=== PATIENT | male | born 1980 | race Caucasian/White ===

== ENCOUNTER 2016-09-20 11:49 | Emergency (ER) | payer BC ==
--- NOTE | 2016-09-20 13:39 | EDM.PDOC ---
ED HPI Behavioral Health - General Chief Complaint: Drug or Alcohol Abuse Stated Complaint: MEDICAL CLEARANCE Time Seen by Provider: 09/20/16 12:21 Source of Information: Reports: Patient Exam Limitations: Reports: No limitations - History of Present Illness INITIAL COMMENTS - FREE TEXT/NARRATIVE: Patient presents for a medical clearance to do the [facility] crisis bed. Patient reports that he has been drinking alcohol steadily since August 01. Prior to that he was sober for 2 years. He struggled with alcohol abuse off and on for several years. He reports that he detoxed twice once in 2010 and once in April 2014. These were at [facility]. He reports that he experienced auditory and visual hallucinations with his previous detox and tremors. He denies ever having seizures. He was previously on some for medication help with the withdrawal symptoms. Patient reports today that he is expressing some chest pain, anxiety, nausea and one episode of vomiting. He does report that he is depression and has anxiety but denies any suicidal ideation or plan. Additionally, he denies any abdominal pain, shortness of breath or any current tremors. Patient reports that he abuses alcohol. She is drinks about a liter of vodka a day. He does not use any street drugs or prescription narcotic medication. Reports that his last drink was about 10 minutes prior to arrival in the ER. Patiently is currently on medication for depression and anxiety. He states he is scheduled to see Dr. beasley at 1500 today. He recently relocated from [place] to the [facility] and this will be his first visit with Dr. beasley. - Related Data Allergies Allergy/AdvReac Type Severity Reaction Status Date / Time No Known Allergies Allergy Verified 09/20/16 11:59 Home Medications: Home Meds Citalopram [Celexa] 40 mg PO DAILY 09/20/16 [History] ClonazePAM [KlonoPIN] 0.5 mg PO DAILY 09/20/16 [History] ClonazePAM [KlonoPIN] 1.5 mg PO BEDTIME 09/20/16 [History] LORazepam [Ativan] 1 mg PO ASDIRECTED #10 tablet 09/20/16 [Rx] Lisinopril 20 mg PO DAILY 09/20/16 [History] Ondansetron [Zofran ODT] 4 mg PO Q6H PRN #12 tab.dis 09/20/16 [Rx] Chest Pain Score (Numeric/FACES): 4 Past Medical History Cardiovascular History: Reports: Hypertension Social & Family History - Tobacco Use Smoking Status *Q: Current Every Day Smoker Years of Tobacco use: 20 Packs/Tins Daily: 1 - Recreational Drug Use Drug Use in Last 12 Months: No ED ROS GENERAL - Review of Systems Review Of Systems: See Below Constitutional: Denies: fever, chills Respiratory: Denies: Shortness of Breath Cardiovascular: Reports: Chest pain GI/Abdominal: Reports: Nausea, Vomiting. Denies: Abdominal pain Neurological: Denies: Seizure, Tremors Psychiatric: Reports: Anxiety, Depression. Denies: Suicidal ideation ED EXAM, BEHAVIORAL HEALTH - Physical Exam Exam: See Below Exam Limited By: No limitations General Appearance: alert, WD/WN, no apparent distress Respiratory/Chest: no respiratory distress, lungs clear, normal breath sounds Cardiovascular: normal peripheral pulses, regular rate, rhythm, no murmur GI/Abdominal: normal bowel sounds, soft, non tender Neurological: alert, normal mood/affect, normal cognition. No: tremor Psychiatric: alert, normal affect, normal cognition, normal mood Skin Exam: Warm, Dry, Normal color EKG INTERPRETATION EKG Date: 09/20/16 Time: 12:30 Rhythm: NSR Rate (beats/min): 100 [place]: normal P-wave: present QRS: normal ST-T: normal QT: normal EKG Interpretation Comments: NSR at 100 bpm. Diffuse early repolarization pattern. Reviewed by myself and Dr. Nazario. COURSE, BEHAVIORAL HEALTH COMP - Course Vital Signs: Last Vital Signs Temp 37.1 C 09/20/16 12:00 Pulse 93 09/20/16 14:15 Resp 18 09/20/16 14:15 BP 131/78 09/20/16 14:15 Pulse Ox 98 09/20/16 14:15 Orders, Labs, Meds: Active Orders 24 hr Category Date Time Status EKG 12 Lead [EKG Documentation Completion] [RC] STAT Care 09/20/16 12:24 Active Chest 1V Frontal [CR] Stat Exams 09/20/16 12:24 Taken Laboratory Tests 09/20/16 09/20/16 09/20/16 Range/Units 12:41 12:41 12:41 WBC 8.63 (4.23-9.07) K/mm3 RBC 4.46 L (4.63-6.08) M/mm3 Hgb 14.2 (13.7-17.5) gm/L Hct 41.2 (40.1-51.0) % MCV 92.4 H (79.0-92.2) fl MCH 31.8 (25.7-32.2) pg MCHC 34.5 (32.2-35.5) g/dl RDW Std Deviation 44.7 H (35.1-43.9) fL Plt Count 192 (163-337) K/mm3 MPV 9.1 L (9.4-12.3) fl Neut % (Auto) 78.9 H (34.0-67.9) % Lymph % (Auto) 15.9 L (21.8-53.1) % [place] % (Auto) 4.3 L (5.3-12.2) % Eos % (Auto) 0 L (0.8-7.0) Baso % (Auto) 0.7 (0.1-1.2) % Neut # 6.81 H (1.78-5.38) K/mm3 Lymph # 1.37 (1.32-3.57) K/mm3 [place] # 0.37 (0.30-0.82) K/mm3 Eos # 0.00 L (0.04-0.54) K/mm3 Baso # 0.06 (0.01-0.08) K/mm3 PT 10.3 (8.0-13.0) SECONDS INR 0.95 APTT 24 (22-36) SECONDS Sodium 143 (136-145) mEq/L Potassium 3.7 (3.5-5.1) mEq/L Chloride 105 (98-107) mEq/L Carbon Dioxide 26 (21-32) mEq/L Anion Gap 15.7 H (5-15) BUN 8 (7-18) mg/dL Creatinine 0.6 L (0.7-1.3) mg/dL Est Cr Clr Drug Dosing 166.93 mL/min Estimated GFR (MDRD) > 60 (>60) mL/min BUN/Creatinine Ratio 13.3 L (14-18) Glucose 102 (74-106) mg/dL Calcium 8.9 (8.5-10.1) mg/dL Total Bilirubin 0.4 (0.2-1.0) mg/dL AST 16 (15-37) U/L ALT 23 (16-63) U/L Alkaline Phosphatase 50 (46-116) U/L Troponin I < 0.017 (0.00-0.056) ng/mL Total Protein 7.2 (6.4-8.2) g/dl Albumin 4.5 (3.4-5.0) g/dl Globulin 2.7 gm/dL Albumin/Globulin Ratio 1.7 (1-2) Urine Color (Yellow) Urine Appearance (Clear) Urine pH (5.0-8.0) Ur Specific [place] (1.005-1.030) Urine Protein (Negative) Urine Glucose (UA) (Negative) Urine Ketones (Negative) Urine Occult Blood (Negative) Urine Nitrite (Negative) Urine Bilirubin (Negative) Urine Urobilinogen (0.2-1.0) Ur Leukocyte Esterase (Negative) Urine RBC (0-5) /hpf Urine WBC (0-5) /hpf Ur Epithelial Cells (0-5) /hpf Urine Bacteria (FEW) /hpf Urine Mucus (FEW) /hpf Urine Opiates Screen (NEGATIVE) Ur Buprenorphine Scrn (NEGATIVE) Ur Oxycodone Screen (NEGATIVE) Urine Methadone Screen (NEGATIVE) Ur Propoxyphene Screen (NEGATIVE) Ur Barbiturates Screen (NEGATIVE) Ur Tricyclics Screen (NEGATIVE) Ur Phencyclidine Scrn (NEGATIVE) Ur Amphetamine Screen (NEGATIVE) U Methamphetamines Scrn (NEGATIVE) U Benzodiazepines Scrn (NEGATIVE) U Cocaine Metab Screen (NEGATIVE) U Marijuana (THC) Screen (NEGATIVE) Ethyl Alcohol 0.23 (0.00) gm% 09/20/16 09/20/16 Range/Units 12:55 12:55 WBC (4.23-9.07) K/mm3 RBC (4.63-6.08) M/mm3 Hgb (13.7-17.5) gm/L Hct (40.1-51.0) % MCV (79.0-92.2) fl MCH (25.7-32.2) pg MCHC (32.2-35.5) g/dl RDW Std Deviation (35.1-43.9) fL Plt Count (163-337) K/mm3 MPV (9.4-12.3) fl Neut % (Auto) (34.0-67.9) % Lymph % (Auto) (21.8-53.1) % [place] % (Auto) (5.3-12.2) % Eos % (Auto) (0.8-7.0) Baso % (Auto) (0.1-1.2) % Neut # (1.78-5.38) K/mm3 Lymph # (1.32-3.57) K/mm3 [place] # (0.30-0.82) K/mm3 Eos # (0.04-0.54) K/mm3 Baso # (0.01-0.08) K/mm3 PT (8.0-13.0) SECONDS INR APTT (22-36) SECONDS Sodium (136-145) mEq/L Potassium (3.5-5.1) mEq/L Chloride (98-107) mEq/L Carbon Dioxide (21-32) mEq/L Anion Gap (5-15) BUN (7-18) mg/dL Creatinine (0.7-1.3) mg/dL Est Cr Clr Drug Dosing mL/min Estimated GFR (MDRD) (>60) mL/min BUN/Creatinine Ratio (14-18) Glucose (74-106) mg/dL Calcium (8.5-10.1) mg/dL Total Bilirubin (0.2-1.0) mg/dL AST (15-37) U/L ALT (16-63) U/L Alkaline Phosphatase (46-116) U/L Troponin I (0.00-0.056) ng/mL Total Protein (6.4-8.2) g/dl Albumin (3.4-5.0) g/dl Globulin gm/dL Albumin/Globulin Ratio (1-2) Urine Color Yellow (Yellow) Urine Appearance Clear (Clear) Urine pH 7.5 (5.0-8.0) Ur Specific [place] 1.020 (1.005-1.030) Urine Protein Negative (Negative) Urine Glucose (UA) Negative (Negative) Urine Ketones Negative (Negative) Urine Occult Blood Negative (Negative) Urine Nitrite Negative (Negative) Urine Bilirubin Negative (Negative) Urine Urobilinogen 0.2 (0.2-1.0) Ur Leukocyte Esterase Negative (Negative) Urine RBC 0-5 (0-5) /hpf Urine WBC 0-5 (0-5) /hpf Ur Epithelial Cells 0-5 (0-5) /hpf Urine Bacteria Rare (FEW) /hpf Urine Mucus Not seen (FEW) /hpf Urine Opiates Screen Negative (NEGATIVE) Ur Buprenorphine Scrn Negative (NEGATIVE) Ur Oxycodone Screen Negative (NEGATIVE) Urine Methadone Screen Negative (NEGATIVE) Ur Propoxyphene Screen Negative (NEGATIVE) Ur Barbiturates Screen Negative (NEGATIVE) Ur Tricyclics Screen Negative (NEGATIVE) Ur Phencyclidine Scrn Negative (NEGATIVE) Ur Amphetamine Screen Negative (NEGATIVE) U Methamphetamines Scrn Negative (NEGATIVE) U Benzodiazepines Scrn Negative (NEGATIVE) U Cocaine Metab Screen Negative (NEGATIVE) U Marijuana (THC) Screen Negative (NEGATIVE) Ethyl Alcohol (0.00) gm% Re-Assessment/Re-Exam: Chest 1view shows no acute intrathroacic process. Medical Clearance: 09/20/16 13:30 Patient is cleared from a medical standpoint for admission to the [facility]. Discharge vs Psych Eval/Treatment:: 09/20/16 13:31 Patient to go to the [facility] for the crisis bed and further care. Ativan scheduled to help with tremors and anxiety symptoms. Patient will continue on the klonopin. Ativan scheduled around klonopin dose. Departure - Departure Time of Disposition: 13:57 Disposition: DC/Tfer to Other 70 Condition: fair Clinical Impression: Alcohol abuse Prescriptions: LORazepam [Ativan] 1 mg PO ASDIRECTED #10 tablet Ondansetron [Zofran ODT] 4 mg PO Q6H PRN #12 tab.dis PRN Reason: Nausea Instructions: Alcohol Use Disorder Referrals: PCP,None [Primary Care Provider] - Additional Instructions: take Ativan as prescribed. For the first day you'll be given 4 doses of Ativan to help with your tremors. This is not be taken with the clonazepam. Doses will be at 5 PM, 3 AM, 1 PM and 5 PM day 2 you will have the dose at 5 AM and 3 PM. On days 3 through 5 1 dose at 3 PM. Medications to help with your tremors and withdrawal symptoms. Zofran one tab sublingually every 8 hours as needed for nausea. go to the [facility] crisis bed as planned. Please return to the ER for any problems, questions or concerns. - My Orders Last 24 Hours: My Active Orders 09/20/16 12:24 EKG 12 Lead [EKG Documentation Completion] [RC] STAT Chest 1V Frontal [CR] Stat - Assessment/Plan Last 24 Hours: My Active Orders 09/20/16 12:24 EKG 12 Lead [EKG Documentation Completion] [RC] STAT Chest 1V Frontal [CR] Stat
[2016-09-20 14:22] VITALS: BP 131/78
--- NOTE | 2016-09-20 16:05 | CR ---
Chest: Portable view of the chest was obtained. Comparison: No previous study. Heart size and mediastinum are normal. Lungs are clear. Minimal scoliosis is noted within the spine. Impression: 1. Nothing acute is identified on portable chest x-ray. Diagnostic code #2
== END 2016-09-20 14:15 | disposition other institution (70) ==
LOC: JD.ED 11:49
DX: F10.10 Alcohol abuse, uncomplicated (principal); I10 Essential (primary) hypertension; F17.210 Nicotine dependence, cigarettes, uncomplicated; Z79.899 Other long term (current) drug therapy
CPT/HCPCS: 36415; 71010; 80053; 80306; 81001; 84484; 85025; 85610; 85730; 93005; 99285; G0480; 99284; 99284-25

== ENCOUNTER 2016-09-20 17:23 | Emergency (ER) | payer BC ==
[2016-09-20 17:35] VITALS: BP 119/78
[2016-09-20] MEDS ORDERED: Sodium Chloride 0.9% 10 ML Syringe FLUSH PRN (17:55)
[2016-09-20] MEDS ORDERED: Sodium Chloride 0.9% 1,000 ML IV ONE ×3 (17:55→20:14)
--- NOTE | 2016-09-20 18:17 | EDM.PDOC ---
ED HPI Behavioral Health - General Chief Complaint: Drug or Alcohol Abuse Stated Complaint: MEDICAL CLEARANCE Time Seen by Provider: 09/20/16 17:56 Source of Information: Reports: Patient Exam Limitations: Reports: No limitations - History of Present Illness INITIAL COMMENTS - FREE TEXT/NARRATIVE: Patient presents to the ER for clearance for the [facility] crisis bed. Patient was seen by myself in the ER earlier today. At that time his blood alcohol is 0.23. He was cleared to go to the [facility] bed. After leaving the [facility] stopped to drink approximately 1-1 pint of vodka. He presented to [facility] around 3 PM for his appointment with Dr. beasley. [facility] then sent him back to the ER for reevaluation. He is now more intoxicated than earlier. He has slurred speech and difficulty walking. Patient reiterates to me that he does want help with his addiction problems. Denies any drug abuse. - Related Data Allergies Allergy/AdvReac Type Severity Reaction Status Date / Time No Known Allergies Allergy Verified 09/20/16 17:31 Home Medications: Home Meds Citalopram [Celexa] 40 mg PO DAILY 09/20/16 [History] ClonazePAM [KlonoPIN] 0.5 mg PO DAILY 09/20/16 [History] ClonazePAM [KlonoPIN] 1.5 mg PO BEDTIME 09/20/16 [History] LORazepam [Ativan] 1 mg PO ASDIRECTED #10 tablet 09/20/16 [Rx] Lisinopril 20 mg PO DAILY 09/20/16 [History] Ondansetron [Zofran ODT] 4 mg PO Q6H PRN #12 tab.dis 09/20/16 [Rx] Past Medical History Cardiovascular History: Reports: Hypertension Social & Family History - Tobacco Use Smoking Status *Q: Current Every Day Smoker Years of Tobacco use: 20 Packs/Tins Daily: 1 - Recreational Drug Use Recreational Drug Use: No Drug Use in Last 12 Months: No ED ROS GENERAL - Review of Systems Review Of Systems: ROS reveals no pertinent complaints other than HPI. ED EXAM, BEHAVIORAL HEALTH - Physical Exam Exam: See Below Exam Limited By: Intoxication General Appearance: alert, WD/WN, no apparent distress Neurological: alert, normal mood/affect Psychiatric: alert, normal affect Skin Exam: Warm, Dry, Normal color COURSE, BEHAVIORAL HEALTH COMP - Course Vital Signs: Last Vital Signs Temp 36.6 C 09/20/16 17:31 Pulse 95 09/20/16 17:31 Resp 18 09/20/16 17:31 BP 119/78 09/20/16 17:31 Pulse Ox 94 L 09/20/16 17:31 Orders, Labs, Meds: Active Orders 24 hr Category Date Time Status Peripheral IV Care [RC] . DIRECTED Care 09/20/16 17:55 Active Peripheral IV Insertion Adult [OM.PC] Routine Oth 09/20/16 17:55 Ordered Laboratory Tests 09/20/16 09/20/16 09/20/16 Range/Units 17:55 20:25 20:32 Urine Opiates Screen Negative (NEGATIVE) Ur Buprenorphine Scrn Negative (NEGATIVE) Ur Oxycodone Screen Negative (NEGATIVE) Urine Methadone Screen Negative (NEGATIVE) Ur Propoxyphene Screen Negative (NEGATIVE) Ur Barbiturates Screen Negative (NEGATIVE) Ur Tricyclics Screen Negative (NEGATIVE) Ur Phencyclidine Scrn Negative (NEGATIVE) Ur Amphetamine Screen Negative (NEGATIVE) U Methamphetamines Scrn Negative (NEGATIVE) U Benzodiazepines Scrn Negative (NEGATIVE) U Cocaine Metab Screen Negative (NEGATIVE) U Marijuana (THC) Screen Negative (NEGATIVE) Ethyl Alcohol 0.31 0.24 (0.00) gm% Medications Discontinued Medications Generic Name Dose Route Start Last Admin Trade Name Konrad PRN Reason Stop Dose Admin Clonazepam 1 mg 09/20/16 21:33 09/20/16 22:05 Klonopin PO 09/20/16 21:34 1 mg ONETIME ONE Administration Sodium Chloride 1,000 mls @ 999 mls/hr 09/20/16 17:55 09/20/16 18:08 Normal Saline IV 09/20/16 18:55 999 mls/hr ONETIME ONE Administration Sodium Chloride 1,000 mls @ 999 mls/hr 09/20/16 18:58 09/20/16 19:07 Normal Saline IV 09/20/16 19:58 999 mls/hr ONETIME ONE Administration Sodium Chloride 1,000 mls @ 150 mls/hr 09/20/16 20:14 09/20/16 20:28 Normal Saline IV 09/21/16 02:53 150 mls/hr ONETIME ONE Administration Sodium Chloride 10 ml 09/20/16 17:55 09/20/16 17:57 Saline Flush FLUSH 10 ml ASDIRECTED PRN Administration Keep Vein Open Medical Clearance: 09/20/16 21:48 At this time blood alcohol level is 0.24. The patient had slept for approximately 4 hours and has received 2 normal saline boluses. He is alert and active. He is able to walk without difficulty. Speech has significantly improved. Still appears slightly intoxicated. He is cleared to go to the [facility] for further care today. Discharge vs Psych Eval/Treatment:: 09/20/16 21:50 The patient's blood alcohol returned at 0.31. It is [facility] policy that they'll accept anybody under 0.3. I gave the patient 2 L of normal saline and hydrated him. His followup blood alcohol level at this time is 0.24, acceptable to go to the [facility]. I anticipate at this level that he should zero out and about 16 hours or tomorrow afternoon. He is to continue with his current plan of Ativan that was prescribed with for him earlier. The patient's is well aware that he is free to leave [facility] anytime if he chooses. Given that she transported him to [facility] earlier and he drank in route to the [facility] I. will have [facility] come to the ER and pick him up here. I discussed with the patient's that if he chooses to leave [facility] there is nothing they can do. If she feels that he needs more treatment she may have to take more drastic measures in the future. She should discuss these options with Dr. beasley as needed. Departure - Departure Time of Disposition: 21:53 Disposition: Home, Self-Care 01 Condition: fair Clinical Impression: Alcohol abuse Referrals: PCP,None [Primary Care Provider] - Additional Instructions: Go to [facility] as planned. Follow Dr. Norton recommendations. - My Orders Last 24 Hours: My Active Orders 09/20/16 17:55 Peripheral IV Care [RC] . DIRECTED Peripheral IV Insertion Adult [OM.PC] Routine - Assessment/Plan Last 24 Hours: My Active Orders 09/20/16 17:55 Peripheral IV Care [RC] . DIRECTED Peripheral IV Insertion Adult [OM.PC] Routine
[2016-09-20] MEDS ORDERED: ClonazePAM 0.5 MG Tab PO ONE (21:33)
== END 2016-09-20 22:00 | disposition home or self-care (01) ==
LOC: JD.ED 17:23
DX: F10.10 Alcohol abuse, uncomplicated (principal); I10 Essential (primary) hypertension; F17.210 Nicotine dependence, cigarettes, uncomplicated; Z79.899 Other long term (current) drug therapy; Y90.0 Blood alcohol level of less than 20 mg/100 ml
CPT/HCPCS: 80306; 96360; 96361; 99283; A9270; G0480; J7040; J7050; 36415